=== PATIENT | female | born 1955 | race Two or more races ===

== ENCOUNTER 2019-01-17 09:02 | Emergency (ER) | payer OTHER ==
[~2019-01-17] VITALS: Ht 154.9 cm; Wt 74.8 kg
--- NOTE | 2019-01-17 09:04 | NUR ---
pt. not in room
--- NOTE | 2019-01-17 09:16 | NUR ---
ED Nurse Note: Pt came in from home with family due to lower medial abdominal pain and burning sensation while urinating x 1 week. Pain 7/ donovan. AOx4, VSS donovan. Will cont to monitor.
--- NOTE | 2019-01-17 09:18 | NUR ---
ED Nurse Note: Urine collected and sent to lab.
[2019-01-17 09:35] LABS: APPEARANCE,URINE CLEAR; BILIRUBIN, URINE 1+ (NEGATIVE); GLUCOSE, URINE (UA) NEGATIVE (NEGATIVE); KETONES,URINE NEGATIVE (NEGATIVE); LEUKOCYTE ESTERASE ,URINE 2+ (NEGATIVE); PH,URINE 5 (4.5-8.0); PROTEIN,URINE NEGATIVE (NEGATIVE); UROBILINOGEN,URINE 4 MG/DL (0.0-1.0)
[2019-01-17 09:51] LABS: COLOR,URINE YELLOW; NITRITE,URINE NEGATIVE (NEGATIVE)
[2019-01-17] MEDS ORDERED: METFORMIN HCL500 M1 ORAL (09:51)
[2019-01-17] MEDS ORDERED: ASPIRIN81 MG ORAL (09:51)
[2019-01-17 09:59] VITALS: BP 140/76
[2019-01-17] MEDS ORDERED: CEPHALEXIN500 MG ORAL (10:15)
[2019-01-17] MEDS ORDERED: PHENAZOPYRIDIN100 MG ORAL (10:15)
[2019-01-17 10:19] VITALS: BP 140/76
--- NOTE | 2019-01-17 10:19 | NUR ---
ER DISCHARGE NOTE: Patient is cleared to be discharged per ERMD, pt is aox4, on room air, with stable vital signs. pt was given dc and prescription instructions, pt was able to verbalize understanding, pt id band removed. pt is able to ambulate with steady gait. pt took all belongings.
--- NOTE | 2019-01-17 10:46 | Emergency Room Report ---
History of Present Illness General Chief Complaint: Female Urogenital Problems Source: Patient, Family Member Present Illness HPI 63-year-old female presents ED for evaluation. Daughter at bedside states that patient is experiencing dysuria symptoms for the last 1 week. Pain is burning, 5 out of 10, nonradiating. History of frequent UTIs. Has been having this problem on and off for the last year. Denies fevers or chills. Denies flank pain. Denies nausea or vomiting. No other aggravating relieving factors. Denies any other associated symptoms Allergies: Coded Allergies: No Known Allergies (Unverified , 01/17/19) Patient History Past Medical History: DM, HTN Past Surgical History: none Pertinent Family History: none Social History: Denies: smoking, alcohol use, drug use Now: No Immunizations: UTD Reviewed Nursing Documentation: PMH: Agreed; PSxH: Agreed Nursing Documentation-PMH Past Medical History: No History, Except For Hx Hypertension: Yes Hx Diabetes: Yes Review of Systems All Other Systems: negative except mentioned in HPI Physical Exam Vital Signs Date Time Temp Pulse Resp B/P (MAP) Pulse Ox O2 Delivery O2 Flow Rate FiO2 01/17/19 09:05 97.7 78 17 153/84 (107) 99 Room Air Sp02 EP Interpretation: reviewed, normal General Appearance: no apparent distress, alert, GCS 15, non-toxic Head: normocephalic, atraumatic Eyes: bilateral eye normal inspection, bilateral eye PERRL ENT: hearing grossly normal, normal pharynx, no angioedema, normal voice Neck: full range of motion, supple/symm/no masses Respiratory: chest non-tender, lungs clear, normal breath sounds, speaking full sentences Cardiovascular #1: regular rate, rhythm, no edema Cardiovascular #2: 2+ carotid (R), 2+ carotid (L), 2+ radial (R), 2+ radial (L) , 2+ dorsalis pedis (R), 2+ dorsalis pedis (L) Gastrointestinal: normal bowel sounds, non tender, soft, non-distended, no guarding, no rebound Rectal: deferred Genitourinary: normal inspection, no CVA tenderness Musculoskeletal: back normal, gait/station normal, normal range of motion, non- tender Neurologic: alert, oriented x3, responsive, motor strength/tone normal, sensory intact, speech normal Psychiatric: judgement/insight normal, memory normal, mood/affect normal, no suicidal/homicidal ideation Reflexes: 3+ bicep (R), 3+ bicep (L), 3+ tricep (R), 3+ tricep (L), 3+ knee (R) , 3+ knee (L) Skin: normal color, no rash, warm/dry, well hydrated Lymphatic: no adenopathy Medical Decision Making Diagnostic Impression: Primary Impression: UTI (urinary tract infection) Qualified Codes: N39.0 - Urinary tract infection, site not specified; R31.9 - Hematuria, unspecified Additional Impression: Dysuria ER Course Hospital Course 63-year-old female presents to ED complaining of dysuria with suprapubic pain. Differential diagnoses include: UTI, cystitis, pyelonephritis Clinical course Patient placed on stretcher. After initial history and physical I ordered UA UA + bacteria. discussed with patient and family. We will prescribe antibiotics and Pyridium. However I do encourage that patient be seen by urology as outpatient for frequent dysuria and infections for the past year. Patient states that she will ask her PMD for referral Diagnosis - UTI, dysuria Stable and discharged home with prescriptions for Rx keflex, pyridium. Instructed to followup with PMD/urology. Return to ED if symptoms recur or worsen Labs Test 01/17/19 09:10 Urine Color Yellow Urine Appearance Clear Urine pH 5 (4.5-8.0) Urine Specific [place] 1.005 (1.005-1.035) Urine Protein Negative (NEGATIVE) Urine Glucose (UA) Negative (NEGATIVE) Urine Ketones Negative (NEGATIVE) Urine Blood 5+ (NEGATIVE) Urine Nitrite Negative (NEGATIVE) Urine Bilirubin 1+ (NEGATIVE) Urine Ictotest Negative (NEGATIVE) Urine Urobilinogen 4 MG/DL (0.0-1.0) Urine Leukocyte Esterase 2+ (NEGATIVE) Urine RBC 2-4 /HPF (0 - 2) Urine WBC 5-10 /HPF (0 - 2) Urine Squamous Epithelial Cells Few /LPF (NONE/OCC) Urine Bacteria Few /HPF (NONE) Last Vital Signs Date Time Temp Pulse Resp B/P (MAP) Pulse Ox O2 Delivery O2 Flow Rate FiO2 01/17/19 10:19 97.7 85 20 140/76 99 Room Air Status: improved Disposition: HOME, SELF-CARE Condition: Stable Scripts Phenazopyridine Hcl* (PYRIDIUM*) 100 Mg Tablet 100 MG ORAL THREE TIMES A DAY for 3 Days, TAB Prov: Suresh Dye MD 01/17/19 Cephalexin* (KEFLEX*) 500 Mg Capsule 500 MG ORAL EVERY 6 HOURS for 7 Days, CAP Prov: Suresh Dye MD 01/17/19 Patient Instructions: Urinary Tract Infection Additional Instructions: you need to followup with urologist as outpatient Suresh Dye MD Jan 17, 2019 10:46
== END 2019-01-17 10:19 | disposition home or self-care (01) ==
LOC: EMR 09:21
DX: N39.0 Urinary tract infection, site not specified (principal); R31.9 Hematuria, unspecified; R30.0 Dysuria; E11.9 Type 2 diabetes mellitus without complications; I10 Essential (primary) hypertension
CPT/HCPCS: 81003; 99282

== ENCOUNTER 2019-09-10 21:34 | Emergency (ER) | payer OTHER ==
[~2019-09-10] VITALS: Ht 152.4 cm; Wt 79.4 kg
[~2019-09-10 21:34] MED LIST: ASPIRIN81 MG ORAL; CEPHALEXIN500 MG ORAL; METFORMIN HCL500 M1 ORAL; PHENAZOPYRIDIN100 MG ORAL
[2019-09-10 22:00] VITALS: BP 128/80
--- NOTE | 2019-09-10 22:00 | NUR ---
ED Nurse Note: Pt walked into ED for c/o Dysuria x 4 days ago. PT reports having chronic UTI x 2 years.
--- NOTE | 2019-09-10 22:14 | NUR ---
ED Nurse Note: Urine sample sent
[2019-09-10 22:19] LABS: APPEARANCE,URINE CLEAR; BILIRUBIN, URINE NEGATIVE (NEGATIVE); COLOR,URINE PALE YELLOW; GLUCOSE, URINE (UA) NEGATIVE (NEGATIVE); KETONES,URINE NEGATIVE (NEGATIVE); LEUKOCYTE ESTERASE ,URINE 1+ (NEGATIVE); NITRITE,URINE NEGATIVE (NEGATIVE); PH,URINE 6.5 (4.5-8.0); PROTEIN,URINE NEGATIVE (NEGATIVE); UROBILINOGEN,URINE NORMAL MG/DL (0.0-1.0)
[2019-09-10 22:25] VITALS: BP 130/76
--- NOTE | 2019-09-10 22:25 | NUR ---
ER DISCHARGE NOTE: Patient is cleared to be discharged per ERMD, pt is aox4, on room air, with stable vital signs. pt was given dc and prescription instructions, pt was able to verbalize understanding, pt id band removed without complications. pt is able to ambulate with steady gait. pt took all belongings.
[2019-09-10] MEDS ORDERED: CEPHALEXIN500 MG ORAL (22:26)
[2019-09-10] MEDS ORDERED: PHENAZOPYRIDIN200 MG ORAL (22:26)
--- NOTE | 2019-09-10 22:27 | Emergency Room Report ---
History of Present Illness General Chief Complaint: Female Urogenital Problems Source: Patient, Family Member Present Illness HPI This is a 63-year-old female with history of diabetes high blood pressure. She also has a history of recurrent UTI. She presents with chief complaint of dysuria, frequency, urgency for last 2 days. Worse with urination. No nausea no vomiting. No abdominal pain. No back pain. Similar symptom in the past. She saw urologist already and based on her description, sound like she had a prolapsed bladder. He gave her Kegel exercise and referred to a dermatology technician. Patient has an appointment on Friday next week. Allergies: Coded Allergies: No Known Allergies (Unverified , 01/17/19) Patient History Past Medical History: see triage record, old chart reviewed, DM, HTN Past Surgical History: other Pertinent Family History: none Social History: Denies: smoking Immunizations: other Reviewed Nursing Documentation: PMH: Agreed; PSxH: Agreed Nursing Documentation-PMH Hx Hypertension: Yes Hx Diabetes: Yes Review of Systems Eye: Denies: eye pain, blurred vision ENT: Denies: ear pain, nose congestion, throat swelling Respiratory: Denies: cough, shortness of breath Cardiovascular: Denies: chest pain, palpitations Gastrointestinal: Denies: abdominal pain, diarrhea, nausea, vomiting Genitourinary: Reports: dysuria, frequency, pain, urgency Musculoskeletal: Denies: back pain, joint pain Skin: Denies: rash Neurological: Denies: headache, numbness Endocrine: Denies: increased thirst, increased urine Hematologic/Lymphatic: Denies: easy bruising All Other Systems: negative except mentioned in HPI Physical Exam Vital Signs Date Time Temp Pulse Resp B/P (MAP) Pulse Ox O2 Delivery O2 Flow Rate FiO2 09/10/19 21:51 97.5 87 16 130/80 (97) 95 Room Air Vitals normal Sp02 EP Interpretation: reviewed, normal General Appearance: well appearing, no apparent distress, alert Head: normocephalic, atraumatic Eyes: bilateral eye PERRL, bilateral eye EOMI ENT: hearing grossly normal, normal pharynx Neck: full range of motion, supple, no meningismus Respiratory: chest non-tender, lungs clear, normal breath sounds Cardiovascular #1: regular rate, rhythm, no murmur Gastrointestinal: normal bowel sounds, non tender, no mass, no organomegaly, no bruit, non-distended Musculoskeletal: back normal, normal range of motion, gait/station normal Psychiatric: mood/affect normal Medical Decision Making Diagnostic Impression: Primary Impression: UTI (urinary tract infection) Qualified Codes: N30.00 - Acute cystitis without hematuria ER Course Patient with symptoms consistent with UTI. No evidence of sepsis, acute abdomen or pyelonephritis. Antibiotics and Pyridium given here. Will discharge home. Last Vital Signs Date Time Temp Pulse Resp B/P (MAP) Pulse Ox O2 Delivery O2 Flow Rate FiO2 09/10/19 22:00 97.8 81 16 128/80 96 Room Air Status: improved Disposition: HOME, SELF-CARE Condition: Stable Scripts Phenazopyridine Hcl* (PYRIDIUM*) 200 Mg Tablet 200 MG ORAL THREE TIMES A DAY, #6 TAB 0 Refills Prov: Ángel Phan MD 09/10/19 Cephalexin* (KEFLEX*) 500 Mg Capsule 500 MG ORAL TID, #21 CAP Prov: Ángel Phan MD 09/10/19 Patient Instructions: Urinary Tract Infection Additional Instructions: Increase fluids. Keep your appointment with your dermatology technician on Friday. Follow-up with your doctor in 2 to 3 days if not better. Return if worse. Ángel Phan MD Sep 10, 2019 22:27
[2019-09-10] MEDS ORDERED: Phenazopyridine 200mg tab ORAL ONE (22:30)
[2019-09-10] MEDS ORDERED: Cephalexin 500mg cap ORAL ONE (22:30)
== END 2019-09-10 22:25 | disposition home or self-care (01) ==
LOC: EMR 22:21
DX: N30.00 Acute cystitis without hematuria (principal); I10 Essential (primary) hypertension; E11.9 Type 2 diabetes mellitus without complications
CPT/HCPCS: 81003; 87086; 87181; Z7502; 99283